=== PATIENT | female | born 1990 | race African-American/Black ===

== ENCOUNTER 2023-06-10 12:55 | Outpatient (CLI) | payer OTHER, SELFPAY | END 2023-06-10 12:56 | disposition home or self-care (01) | LOC: ANHSURGERY 12:59 | PROVIDERS: Visit Provider Obstetrics & Gynecology | DX: R10.2 Pelvic and perineal pain (principal); Z01.818 Encounter for other preprocedural examination | CPT/HCPCS: 36415; 86850; 86900; 86901 ==

== ENCOUNTER 2023-06-14 02:40 | Day surgery (SDC) | payer OTHER, SELFPAY ==
--- NOTE | 2023-06-05 15:29 | SUR.PREOP ---
Report to the Outpatient Waiting Room, entrance under the green pavilion located off [facility], at time 0715 on date 06/14/23. Planned Procedure Time: 0915. Time changes happen often and if your time is changed the preop area will call you the afternoon before. - You and your visitor will be asked to self-screen and do not enter if you have any COVID symptoms. - A mask is optional within the hospital at this time. Patients may have clear liquids (water, carbonated beverages, clear teas, apple juice) until 3 hours prior to surgery with a maximum of 20 ounces. - NO CLEAR LIQUIDS AFTER 0615 - No food from midnight until time of surgery - Infants may have breast milk until 4 hours before surgery, infant formula 6 hours prior to surgery. - Children will be allowed to drink immediately following surgery. If applicable, please bring a bottle or sippy cup to assist with drinking. Juice, water, soda, and popsicles are readily available. For infants on formula, please bring formula the day of surgery. Pacifiers are allowed. Please no make-up, nail tajik, hairspray, perfume, deodorant, or body powder the day of surgery. No jewelry (including any body piercings) or valuables the day of surgery, leave them at home. Please take a shower or bath the night before, or the morning of, surgery with an antibacterial soap. Wear comfortable, loose fitting clothing. Children are encouraged to wear pajamas. - Jewelry must be removed prior to entering the operating room. Rings and piercings that are not removed may be cut off. - The hospital will not accept responsibility for valuables. - Please leave all valuables, including medications, at home the day of surgery. If you are going home after surgery, a licensed spotter driver must drive you home. - NO public transportation without another adult if you receive anesthesia. - We recommend that an adult stay with you for 24 hours following discharge. - We also recommend that you do not drive, make important decision, drink alcoholic beverages, or take any drugs that were not prescribed by your health care provider for at least 24 hours after your discharge time. For Pediatric surgeries, we recommend two adults accompany the child home. Follow any additional instructions given to you from your surgeon. If you or anyone in your household have experienced Covid symptoms in the past week, please notify your surgeon or the nurse liaison at the phone number below for possible testing. Telephone instructions given to KYLAH COHEN and asked if any additional questions and then verbalized understanding. Patient advised to call surgeon office or pre surgery nurse liaison [phone] if any additional questions.
[2023-06-05 15:41] VITALS: BMI 41.7
--- NOTE | 2023-06-11 07:09 | P.HP_ITS ---
H&P: HPI History of Present Illness Date/Time: 06/11/23 07:09 Chief Complaint: Pelvic pain Narrative: 32-year-old multiparous female admitted for laparoscopy and chromopertubation. She has pain discomfort and dyspareunia. She has failed pain medication with negative STD findings. She also desires . So she will undergo chromopertubation simultaneously. Risks and benefits of this procedure reviewed including not exclusive of , aspiration pneumonia, bleeding, transfusion, perforation injury to bowel, bladder, ureters, or other internal organs with need for open laparotomy. She received the ACOG handout entitled laparoscopy. She had all questions answered. She asked to proceed. FORMERLY [facility] Social History Social History Smoking packs per day: 1 Smoking cigarettes per day: 20.0 Years smoked: 5 Smoking pack-years: 5.00 Tobacco type: e-cigarettes/vaping Additional smoking assessment comments: CURRENTLY VAPES DAILY FOR 2-3 YEARS Substance use type: marijuana Other substance usage details: MARIJUANA DAILY Living arrangements: with family Spiritual care concerns: No Meds Home Medications and Allergies Home Medications Medication Instructions Recorded Confirmed Type No Home Medications 06/05/23 06/05/23 History Allergies Allergy/AdvReac Type Severity Reaction Status Date / Time No Known Allergies Allergy Verified 06/05/23 15:35 Exam Const: General: cooperative, healthy appearing and comfortable Nutritional Appearance: overweight Orientation/consciousness: oriented to person, oriented to place and oriented to time HENMT: Head: normal to inspection Resp: Effort & Inspection: normal respiratory effort Cardio: Rate: regular rate Rhythm: regular rhythm Heart sounds: S1 normal heart sound present and S2 normal heart sound present GI: Inspection: normal to inspection : External Female Exam: normal external appearance Speculum Exam - Vagina: normal appearance of the vagina Speculum Exam - Cervix: normal appearance of the cervix Bimanual exam- vagina & uterus: enlarged and Uterine tenderness Bimanual Exam- Adnexa, other: tender bilaterally Assessment and Plan Assessment and plan (1) Pelvic pain: Code(s): R10.2 - Pelvic and perineal pain Status: Acute Plan Proceed with diagnostic laparoscopy and chromopertubation
--- NOTE | 2023-06-13 13:25 | WPDANESEPPF ---
Anes - Initial Pre Proc Eval Procedure: Operation Date: 06/14/23 08:30 Proposed Procedures p Diagnostic Laparoscopy - Alexis Hernadez MD Date/Time: 06/13/23 13:25 Surgeon: Alexis Hernadez MD Pre Op Diagnosis: Pelvic Pain Patient Data Age: 32 Gender: F Height: 1.68 m Weight: 117.2 kg Allergies Allergy/AdvReac Type Severity Reaction Status Date / Time No Known Allergies Allergy Verified 06/05/23 15:35 Home Medications Medication Instructions Recorded Confirmed Type hydrocodone 5 mg-acetaminophen 325 1 tablet PO Q4H PRN pain #20 tabs 06/14/23 Rx mg tablet Patient hx anesthesia problems: none Family hx anesthesia problems: none Results Review: All pre-operative results and documents have been reviewed as part of the pre-operative evaluation. FORMERLY [facility] Past Medical History Medical History (Updated 06/13/23 @ 13:30 by Savage Garza DO) Anxiety Surgical History Surgical History (Updated 06/13/23 @ 13:30 by Savage Garza DO) History of cholecystectomy Social History Social History Smoking packs per day: 1 Smoking cigarettes per day: 20.0 Years smoked: 5 Smoking pack-years: 5.00 Tobacco type: e-cigarettes/vaping Additional smoking assessment comments: CURRENTLY VAPES DAILY FOR 2-3 YEARS Substance use type: marijuana Other substance usage details: MARIJUANA DAILY Living arrangements: with family Spiritual care concerns: No Anes - Eval Final PreProcedure Day of Procedure Patient weight: morbidly obese Heart: regular rate and rhythm Lungs: clear to auscultation Airway: Mallampati scale class II Neurological: alert and oriented Last oral intake: >/= 8 hours ASA classification: III Emergent: no Anesthetic plan: proceed Anesthesia type and monitoring: general ETT and standard monitoring
[2023-06-14] VITALS (8 sets, daily range): BP systolic 106–131; BP diastolic 62–88; PULSE 59–91; RESP 12–16; TEMP 36.1–36.4; O2SAT 99–100
--- NOTE | 2023-06-14 06:32 | WPDHPUPDATE1 ---
History and Physical Update Update Date/Time: 06/14/23 06:32 History and Physical has been reviewed, including an updated exam of the patient. There are NO changes in the patient's condition. Risks, benefits, and alternatives have been discussed and questions answered. Patient agrees to proceed with procedure.
[2023-06-14] MEDS: LACTATED RINGERS 1,000 ML 30 ML IV CONT ×2 (07:00→09:32)
[2023-06-14] MEDS: MIDAZOLAM HCL (*CRX) 2 MG/2 ML VIAL IV PUSH (07:30)
[2023-06-14] MEDS: KETOROLAC 15 MG/ML VIAL (*BKC) IV PUSH (07:52)
[2023-06-14] MEDS: METHYLENE BLUE 0.5% INJ 10 ML AMPULE 20 ML IRRIGATION (09:02)
--- NOTE | 2023-06-14 09:02 | P.OP_ITS ---
Procedure Note - Detailed Date of Procedure 06/14/23 Pre-op Diagnosis Pelvic Pain Post-op Diagnosis Other (See with ovarian cysts) Procedure Performed laparoscopy with destruction of bilateral cysts were 2 Surgeon Alexis Hernadez MD Anesthesia General Indications this is a 32 year female pelvic pain Findings bilateral ovarian cysts were simple tubes uterus. Description of Procedure Patient was prepped draped in the sterile fashion placed dorsal. First trach anesthesia weighted speculum placed in posterior. Anterior lip cervix a single- tooth Kellogg's cannula inserted attached to the single-tooth. This would be used later for uterine manipulation. Bladder emptied of clear urine. The weighted speculum was removed gloves were changed. A supraumbilical incision made Veress needle passed in the abdomen. Abdomen filled with CO2 gas [id number]. The 5mm trocar advanced under direct visualization with optic scope assuring no injury. Patient placed in Trendelenburg suprapubic incision made the 5mm trocar advanced under direct visualization assuring no injury. The above findings were seen. The ovarian cysts were opened in linear fashion and drained of clear fluid. Chromopertubation was undertaken the plan fluid the fallopian tubes appeared to be pain. Irrigation was undertaken to clear the gas removed from the abdomen. The trocar sites removed the incisions closed with 4 Monocryl glue. Patient was awakened went to recovery in satisfactory condition. All sponge, needle, instrument counts were correct. There were no immediate complications Estimated Blood Loss 5 Drains No Packing No Pathology None sent Complications No immediate complications Condition Stable Disposition PACU
[2023-06-14] MEDS: oxyCODONE HCL (*CRX) 5 MG TAB IR PO (10:27)
== END 2023-06-14 10:59 | disposition home or self-care (01) ==
PROVIDERS: Visit Provider Obstetrics & Gynecology
PROC: (CPT 49320; principal; 2023-06-14 08:30)
DX: N83.202 Unspecified ovarian cyst, left side (principal); N83.201 Unspecified ovarian cyst, right side; F17.290 Nicotine dependence, other tobacco product, uncomplicated; E66.01 Morbid (severe) obesity due to excess calories; Z68.41 Body mass index [BMI] 40.0-44.9, adult
CPT/HCPCS: 58662; A9270; J0330; J1100; J1885; J2250; J2405; J2704; J3010; J7030; J7120; Q9968

== ENCOUNTER 2023-07-26 18:17 | Emergency (ER) | payer OTHER, SELFPAY ==
--- NOTE | ~2023-07-26 | CT_ITS ---
CT abdomen pelvis w con Ordering provider: Julissa Tucker PA-C History: . flank pain, UTI . Comparison: None. Technique: CT abdomen with IV and without oral contrast. Radiation reduction technique utilized. The LMP 1320.9 mGy Findings: VISUALIZED LOWER CHEST: Normal. UPPER ABDOMINAL ORGANS: Liver: Hypodensity near to the interlobar fissure most likely fat infiltration. Gallbladder: Status post cholecystectomy. Spleen: Normal. Stomach/duodenum: Normal. Pancreas: Normal. Adrenals: Normal. Kidneys: Normal. Urinary bladder: Normal. Uterus: Normal. Follicles in the right ovary. VISUALIZED BOWEL AND MESENTERY: No evidence of diverticulitis. Normal appendix. The bowel is otherwis e normal. No free air or free fluid. Mesenteric lymph nodes are noted with the largest measures 1.8 c m. RETROPERITONEUM: Normal aorta No retroperitoneal abnormalities and on the patient lymphadenopathy. MUSCULOSKELETAL: The superficial soft tissues are normal. Age appropriate degenerative changes of the spine. IMPRESSION: No acute abdominal process. Slightly enlarged mesenteric lymph nodes. Reviewed, dictated and finalized at location A.
[2023-07-26 18:18] VITALS: BP 147/92; PULSE 81; RESP 20; TEMP 36.5; O2SAT 100
[2023-07-26 18:39] LABS: Basophils Percent Auto 0.3 % (0.2-1.2); Eosinophils Absolute Auto 0.1 K/mm3 (0-0.3); Eosinophils Percent Auto 0.9 % (0-4.4); Hematocrit 35.5 % (37.0-47.0); Hemoglobin 11.9 g/dL (12.0-15.0); Immature Granulocyte Absolute 0.05 K/mm3 (0.00-0.031); Immature Granulocyte Percent A 0.4 % (0-0.5); Lymphocytes Percent Auto 35.6 % (18.3-44.2); Mean Corpuscular HGB Conc 33.5 g/dl (32-36); Mean Corpuscular Hemoglobin 30.4 pg (26-34); Mean Corpuscular Volume 90.6 fl (80-100); Mean Platelet Volume 10.1 fl (7.4-10.4); Monocytes Absolute Auto 0.8 K/mm3 (0.1-0.6); Monocytes Percent Auto 6.2 % (2.6-8.5); Neutrophils Absolute Auto 7.5 K/mm3 (1.3-6.7); Neutrophils Percent Auto 56.6 % (45.5-73.1); Platelet Count Result 313 k/mm3 (150-375); Red Blood Count 3.92 M/mm3 (4.2-5.4); Red Cell Distribution Width 13.6 % (11.5-14.5); White Blood Count 13.2 K/mm3 (4.5-10.0)
[2023-07-26 18:47] LABS: Appearance Urine Cloudy (Clear); Bacteria Urine 3+ /hpf; Bilirubin Urine Negative (Negative); Blood Urine Negative (Negative); Color Urine Yellow (Yellow); Glucose Urine UA Negative (Negative); Ketones Urine Negative (Negative); Leukocyte Esterase Ur 2+ LEU/UL (Negative); Nitrate Urine Negative (Negative); Non Pathogenic Casts 0-2; Protein Urine Negative (Negative); RBC Urine 0-2 /hpf (0-2); Specific Grav Ur 1.022 (1.001-1.035); Squamous Epithelial Cell Urine Moderate /hpf (Few); Urobilinogen Urine 0.2 mg/dL (<2.0); WBC Urine 21-50 /hpf (0-3); pH Urine 6.5 (5.0-9.0)
[2023-07-26 18:52] LABS: Add Urine Microscopic? YES
--- NOTE | 2023-07-26 18:59 | ED.BACK ---
HPI - Back Pain/Injury General Chief Complaint: Back Pain/Injury Stated Complaint: R sided back pain Time Seen by Provider: 07/26/23 18:27 Source: patient Mode of arrival: ambulatory Limitations: no limitations History of Present Illness HPI Narrative: This is a 32-year-old female that presents to the emergency department for right-sided low back pain. Ongoing over the last week. Reports associated nausea. Denies fevers, vomiting, dysuria, or hematuria. Related Data Allergies Allergy/AdvReac Type Severity Reaction Status Date / Time No Known Allergies Allergy Verified 07/26/23 18:21 Review of Systems Review of Systems: CONSTITUTIONAL: Denies fever GASTROINTESTINAL: Reports nausea. Denies vomiting, or diarrhea. GENITOURINARY: Denies dysuria or hematuria. All systems reviewed & are unremarkable except as noted in HPI and below PMFSH Past Medical History Medical History (Updated 07/26/23 @ 20:45 by Julissa Tucker PA-C) Anxiety Surgical History Surgical History (Updated 06/13/23 @ 13:30 by Savage Garza DO) History of cholecystectomy Social History Social History Smoking packs per day: 1 Smoking cigarettes per day: 20.0 Years smoked: 5 Smoking pack-years: 5.00 Tobacco type: e-cigarettes/vaping Additional smoking assessment comments: CURRENTLY VAPES DAILY FOR 2-3 YEARS Substance use type: marijuana Other substance usage details: MARIJUANA DAILY Living arrangements: with family Spiritual care concerns: No Exam Narrative: GENERAL: Well-appearing, well-nourished, and in no acute distress. HEAD: Normocephalic, atraumatic. EYES: EOMI. CHEST: Clear to auscultation. No respiratory distress. No wheezes rales or rhonchi HEART: Regular rate and rhythm. No murmur heard. Normal peripheral pulses. ABDOMEN: Soft, nontender, nondistended, normal active bowel sounds. No CVA tenderness EXTREMITIES: Normal range of motion. No edema. SKIN: Warm, dry, no rash. NEURO: No focal deficits. Alert and oriented x3. PSYCH: Normal mood and affect Course Course Emergency Course: patient updated on workup and agrees with plan of care Vital Signs Vital signs: Vital Signs Temperature 97.7 F 07/26/23 18:18 Pulse Rate 81 06/14/24 18:18 Respiratory Rate 20 07/26/23 18:18 Blood Pressure 147/92 H 07/26/23 18:18 Pulse Oximetry 100 07/26/23 18:18 Oxygen Delivery Room Air 07/26/23 18:18 Temperature 97.7 F 07/26/23 18:18 Pulse Rate 81 07/26/23 18:18 Respiratory Rate 20 07/26/23 18:18 Blood Pressure 147/92 H 07/26/23 18:18 Pulse Oximetry 100 07/26/23 18:18 Oxygen Delivery Room Air 07/26/23 18:18 MDM - Back Pain/Injury MDM Narrative Medical decision making narrative: Patient presents to the emergency department for right-sided low back pain ongoing over the last week. She is afebrile and nontoxic appearing. Her vitals are stable. CBC with mild leukocytosis to 13.2. Also shows normocytic anemia with hemoglobin of 11.9. Metabolic panel without concerning findings. UA with evidence of infection. This will be sent for culture. test is negative. Patient given 1st dose of antibiotics IV in the ED. CT abdomen and pelvis is without acute abdominal process. Shows slightly enlarged mesenteric lymph nodes. Patient updated on workup and agrees with plan of care. She is to follow up with primary provider. She was given warnings to return to the ER Differential Diagnosis Differential diagnosis: Likely strain of lumbar region, renal colic, pyelonephritis and other ( UTI, kidney stone) Lab Data Attestation: I reviewed the patient's lab results. 07/26/23 18:32 07/26/23 18:32 Labs: Lab Results 07/26/23 Range/Units 18:32 WBC 13.2 H (4.5-10.0) K/mm3 RBC 3.92 L (4.2-5.4) M/mm3 Hgb 11.9 L (12.0-15.0) g/dL Hct 35.5 L (37.0-47.0) % MCV 90.6
[2023-07-26 19:00] LABS: Alanine Aminotransferase 20 U/L (6-35); Albumin Level 4.6 g/dL (3.5-5.1); Alkaline Phosphatase 50 U/L (38-126); Anion Gap 12 mmol/L (4-12); Aspartate Amino Transferase 30 U/L (14-36); Bilirubin,Total 0.6 mg/dL (0.2-1.3); Blood Urea Nitrogen 13 mg/dL (7-17); Calcium 9.3 mg/dL (8.4-10.2); Carbon Dioxide 19 mmol/L (22-30); Chloride 107 mmol/L (98-107); Estimated CRCL calculation 103 ml/min; Estimated Glomerular Filt Rate > 60; Glucose 98 mg/dL (65-110); Potassium 3.9 mmol/L (3.4-5.0); Sodium 138 mmol/L (137-145)
[2023-07-26] MEDS: KETOROLAC 15 MG/ML VIAL (*BKC) IV PUSH (19:43)
[2023-07-26 20:44] VITALS: BP 136/83; PULSE 66; RESP 18; O2SAT 99
== END 2023-07-26 21:02 | disposition home or self-care (01) ==
PROVIDERS: Emergency Provider Physician Assistant
DX: N39.0 Urinary tract infection, site not specified (principal); M54.50 Low back pain, unspecified; D64.9 Anemia, unspecified; F17.290 Nicotine dependence, other tobacco product, uncomplicated; Z90.49 Acquired absence of other specified parts of digestive tract
CPT/HCPCS: 36415; 74177; 80053; 81001; 81025; 85025; 87077; 87086; 87088; 96365; 96375; 99284; J0696; J1885; Q9967

== ENCOUNTER 2024-03-05 11:18 | Outpatient (CLI) | payer OTHER, SELFPAY ==
[2024-03-05 13:02] LABS: Hematocrit 34.4 % (37.0-47.0); Hemoglobin 10.9 g/dL (12.0-15.0)
== END 2024-03-05 11:19 | disposition home or self-care (01) ==
PROVIDERS: Visit Provider Obstetrics & Gynecology
DX: R10.2 Pelvic and perineal pain (principal)
CPT/HCPCS: 36415; 85014; 85018; 86850; 86900; 86901

== ENCOUNTER 2024-03-12 01:49 | Day surgery (SDC) | payer OTHER, SELFPAY ==
--- NOTE | 2024-03-02 14:10 | SUR.PREOP ---
Report to the Outpatient Waiting Room, entrance under the green pavilion located off [facility], at time _0630_ on date _03/12/2024_. Planned Procedure Time: _0830_.? Time changes happen often and if your time is changed the preop area will call you the afternoon before. - You and your visitor will be asked to self-screen and do not enter if you have any COVID symptoms. Please call surgeon if you need to reschedule. - A mask is optional within the hospital at this time. Patients may have clear liquids (water, carbonated beverages, clear teas, apple juice) until 3 hours (0530) prior to surgery with a maximum of 20 ounces. - No food from midnight until time of surgery and no smoking. This includes no chewing gum, candy or mints. Take only the following medications with a SIP of water on the morning of surgery: _NA_ DO NOT STOP ANY OF YOUR OTHER PRESCRIPTION MEDICATIONS PRIOR TO SURGERY EXCEPT THE FOLLOWING Medications to discontinue per physician _NA_ Date to take last dose_NA_ Please no make-up, nail comoran, hairspray, perfume, deodorant, or body powder the day of surgery.? No jewelry (including any body piercings) or valuables the day of surgery, leave them at home.? Please take a shower or bath the night before, or the morning of, surgery with an antibacterial soap.? Wear comfortable, loose fitting clothing.? Children are encouraged to wear pajamas. - Jewelry must be removed prior to entering the operating room.? Rings and piercings that are not removed may be cut off. - The hospital will not accept responsibility for valuables.? - Please leave all valuables, including medications, at home the day of surgery. If you are going home after surgery, a licensed regional company flatbed truck driver must drive you home.? - NO public transportation without another adult if you receive anesthesia. - We recommend that an adult stay with you for 24 hours following discharge. - We also recommend that you do not drive, make important decision, drink alcoholic beverages, or take any drugs that were not prescribed by your health care provider for at least 24 hours after your discharge time. Follow any additional instructions given to you from your surgeon. Telephone instructions given to _Ana M_and asked if any additional questions and then verbalized understanding. Patient advised to call surgeon office or pre surgery nurse liaison [phone] if any additional questions.
[2024-03-02 14:19] VITALS: BMI 43.5
--- NOTE | 2024-03-10 07:07 | PM.IMHP ---
H&P: HPI History of Present Illness Date/Time: 03/10/24 07:07 Chief Complaint: Pelvic pain/excessive bleeding Narrative: 33-year-old 2 para 2 admitted for laparoscopy hysteroscopy dilatation curettage she is also wants to undergo a chromopertubation she would like to be . Risks and benefits of these procedures reviewed including not exclusive of , aspiration pneumonia, bleeding, transfusion, perforation injury to bowel, bladder, ureters, or other internal organs with need for open laparotomy. She received the ACOG handout entitled laparoscopy as well as hysteroscopy and dilatation curettage respectively. She had all questions answered and asked to proceed Review of Systems Review of Systems: CONSTITUTIONAL: Denies fever GASTROINTESTINAL: Reports nausea. Denies vomiting, or diarrhea. GENITOURINARY: Denies dysuria or hematuria. All systems reviewed & are unremarkable except as noted in HPI and below PMFSH Past Medical History Medical History Anxiety Surgical History Surgical History History of cholecystectomy Social History Social History Smoking packs per day: 1 Smoking cigarettes per day: 20.0 Years smoked: 5 Smoking pack-years: 5.00 Smoking status: Current every day smoker Tobacco type: e-cigarettes/vaping Second hand tobacco smoke exposure: No Additional smoking assessment comments: CURRENTLY VAPES DAILY FOR 2-3 YEARS Alcohol intake: never Substance use: current Substance use type: marijuana Other substance usage details: daily Living arrangements: with family Additional living arrangements comments: with fiance and children Spiritual care concerns: No Meds Home Medications and Allergies Home Medications ?Medication ?Instructions ?Recorded ?Confirmed ?Type No Home Medications 03/02/24 03/02/24 History Allergies Allergy/AdvReac Type Severity Reaction Status Date / Time No Known Allergies Allergy Verified 03/02/24 14:19 Exam Const: General: cooperative, healthy appearing, comfortable and obese Orientation/consciousness: oriented to person, oriented to place and oriented to time HENMT: Head: normal to inspection Resp: Effort & Inspection: normal respiratory effort Cardio: Rate: regular rate Rhythm: regular rhythm Heart sounds: S1 normal heart sound present and S2 normal heart sound present GI: Inspection: normal to inspection and obesity : External Female Exam: normal external appearance Speculum Exam - Vagina: normal appearance of the vagina Speculum Exam - Cervix: normal appearance of the cervix Bimanual exam- vagina & uterus: soft Bimanual Exam- Adnexa, other: tender bilaterally Assessment and Plan Assessment and plan (1) Pelvic pain: Code(s): R10.2 - Pelvic and perineal pain Status: Acute (2) Excessive bleeding: Code(s): R58 - Hemorrhage, not elsewhere classified Status: Acute Plan Proceed with laparoscopy/hysteroscopy/dilatation curettage. Will also perform chromopertubation
[2024-03-12] VITALS (9 sets, daily range): BP systolic 97–134; BP diastolic 64–85; PULSE 55–93; RESP 12–18; TEMP 36.3–36.6; O2SAT 97–100; BMI 43.2
--- OUTSIDE RECORDS SUMMARY | 2024-03-12 01:51 | XMS_ITS | Clinical Summary ---
Author Organization [facility] Address [address] [place] [address] Phone Care Team Providers Care Desolderer Name Role Phone Provider, None Primary Care Provider Unavailabl e Social History Tobacco Use Types Packs/Day Years Used Date Smoking Tobacco: Never Assessed Comments Unknown Sex and Gender Information Value Date Recorded Sex Assigned at Not on file Legal Sex Female 1:23 AM CDT Gender Identity Not on file Sexual Orientation Not on file Plan of Treatment Not on file Insurance MEDICAID [place] Care Teams Desolderer Relationship Specialty Start Date End Date Provider, None [place] PCP - General 10/18/16
--- OUTSIDE RECORDS SUMMARY | 2024-03-12 01:51 | XMS_ITS | Clinical Summary ---
Author Organization [facility] Address [address] [facility] [place] [address] Care Team Providers Care Waiter/Waitress Formal Name Role Phone Daniel Leal MD Primary Care Provider Source Comments [facility] [employer],non-owned Affiliates and Associated Physician Practices is amultiple site organization consisting of ambulatory clinics and hospital sitesin [place], [place], [place] and [place]. This disclosure is being madepursuant to the Care Everywhere program and may not contain all information available regarding this patient. Last updated 17.[facility] [employer] Immunizations Name Administration Dates Next Due TDAP (7yrs+) 10/06/2015 Social History Tobacco Use Types Packs/Day Years Used Date Smoking Tobacco: Never Assessed Sex and Gender Information Value Date Recorded Sex Assigned at Not on file Gender Identity Not on file Sexual Orientation Not on file Plan of Treatment Health Maintenance Due Date Last Done Comments PAP SMEAR 1990 HIV SCREENING 2005 HEPATITIS C SCREENING 07/25/2008 HEPATITIS B VACCINE (1 of 3 - 19+ 3-dose series) 2009 COVID-19 VACCINE ( - 2023-2 5 season) 2023 INFLUENZA VACCINE (#1) 2023 DEPRESSION SCREENING 02/12/2024 DTAP/TDAP/TD VACCINES (2 - T d or Tdap) 10/05/2025 10/06/2015 ZOSTER VACCINE (1 of 2) 2040 HIB VACCINE Aged Out No longer eligi ble based on patient's age to complete this topic HPV VACCINE Aged Out No longer eligi ble based on patient's age to complete this topic MENINGOCOCCAL (Group B) VACCINE Aged Out No longer eligible based on patient's age to complete this topic MENINGOCOCCAL VACCINE Aged Out No marian silvia eligible based on patient's age to complete this topic PNEUMOCOCCAL VACCINE Aged Out No long er eligible based on patient's age to complete this topic Care Teams Waiter/Waitress Formal Relationship Specialty Start Date End Date Daniel Leal MD [address] [facility] [address] [place] [id number] PCP - General Internal Medicine 10/06/15
--- OUTSIDE RECORDS SUMMARY | 2024-03-12 01:51 | XMS_ITS | Patient Health Summary ---
Author Organization [facility] Address [address] [place] [address] Care Team Providers Care Clinical Ob Name Role Phone Daniel Leal MD Primary Care Provider [phone] Note from [facility],non-owned Affiliates and Associated Physician Practices is amultiple site organization consisting of ambulatory clinics and hospital sitesin [place], [place], [place] and [place]. This disclosure is being madepursuant to the Care Everywhere program and may not contain all information available regarding this patient. Last updated 17.[facility] Immunizations * TDAP (7yrs+)(Given 10/06/2015) Social History Tobacco Use Types Packs/Day Years Used Date Smoking Tobacco: Never Assessed Sex and Gender Information Value Date Recorded Sex Assigned at Not on file Gender Identity Not on file Sexual Orientation Not on file Procedures * GROSS + MICRO EXAM(Performed 10/27/2004) Results * GROSS + MICRO EXAM (10/27/2004 1:00 PM CDT) Result CASE NUMBER [id number] [facility] PATH REPORT Comment: ORDERING PHYSICIAN ??LIZY MENDEZ SPECIMEN TYPE ?Gallbladder CLINICAL HISTORY ? The patient is a 14-year-old girl with biliary colic who underwent laparoscopic cholecystectomy. GROSS DESCRIPTION ? The specimen, labeled with the patient's name and gallbladder, is received in a plastic bag for gross and microscopic examination and consists of a 10.2 x 2.0 x 1.6 cm hydropic pink-cervantes gallbladder. ??The cystic duct is stapled shut. ??The gallbladder is filled with yellow choleliths and thick black-brown bile. ??The stones vary in size from 1 mm in greatest dimension up to 5 mm cm in greatest dimension. ??The serosal surface is smooth. ??The mucosal surface is yellow-cervantes and velvety. ??The wall thickness measures 2 mm. ??A 3.0 cm cavity is identified at the fundus of the gallbladder. ??A 1.0 cm hemorrhagic nodule is identified at the periphery of the cavity. ??A second 0.5 cm nodule is identified 0.3 cm from the cavity. ??Orthopedically Impaired Teacher sections from the cystic duct are submitted in cassette A1 . ??The remainder of the specimen is fixed in formalin overnight prior to further sectioning. Orthopedically Impaired Teacher sections from the nodules are submitted in cassette A2 . Orthopedically Impaired Teacher sections from the cavity are submitted in cassette A3 . Orthopedically Impaired Teacher sections from the remainder of the specimen are submitted in cassette A4 . ??(CC/pg) MICROSCOPIC DESCRIPTION ? 4 H/E, 1 trichrome, 1 iron and 1 bilirubin stain Sections show focal thickening gallbladder wall with a lymphocytic infiltrate in the submucosa. ??Sections through the grossly described nodules show thick-wall with a mixed inflammatory infiltrate, granulation tissue and perivascular mixed inflammation, particularly eosinophils and gold-brown pigmented macrophages containing iron. ([place]/pg/lw) DIAGNOSIS ? DIAGNOSIS ??GALLBLADDER, EXCISION ? - CHRONIC CHOLECYSTITIS. ? - CHOLELITHIASIS. This case has been personally reviewed and interpreted by the attending (teaching) pathologist. Improvement Manager ? MILTON LANGLEY RESIDENT IN PATHOLOG Ariel Castellon. PATHOLOGIST ?Kiran Burnette M.D. ELECTRONICALLY MONO Kiran Burnette MISCELLANEOUS SAMPLES / Unknown 10/27/2004 1:00 PM CDT 10/27/2004 2:16 PM CDT Historical Provider LAB - PATHOLOGY/C YTOLOGY ORDERABLES [facility] PATH REPORT Care Teams Clinical Ob Relationship Specialty Start Date End Date Daniel Leal MD [address] [id number] PCP - General Internal Medicine 10/06/15
--- OUTSIDE RECORDS SUMMARY | 2024-03-12 01:51 | XMS_ITS | Referral Summary ---
Author Organization [facility] Address [address] [place] [address] Care Team Providers Care Laundry Operator Name Role Phone Daniel Leal MD Primary Care Provider Source Comments [facility],non-owned Affiliates and Associated Physician Practices is amultiple site organization consisting of ambulatory clinics and hospital sitesin [place], [place], [place] and [place]. This disclosure is being madepursuant to the Care Everywhere program and may not contain all information available regarding this patient. Last updated 17.[facility] Immunizations Name Administration Dates Next Due TDAP (7yrs+) 10/06/2015 Social History Tobacco Use Types Packs/Day Years Used Date Smoking Tobacco: Never Assessed Sex and Gender Information Value Date Recorded Sex Assigned at Not on file Gender Identity Not on file Sexual Orientation Not on file Plan of Treatment Not on file Care Teams Laundry Operator Relationship Specialty Start Date End Date Daniel Leal MD [address] [facility] [address] [place] [id number] PCP - General Internal Medicine 10/06/15
[2024-03-12] MEDS: LACTATED RINGERS 1,000 ML 30 ML IV CONT (07:00)
--- NOTE | 2024-03-12 07:01 | WPDHPUPDATE1 ---
History and Physical Update Update Date/Time: 03/12/24 07:01 History and Physical has been reviewed, including an updated exam of the patient. There are NO changes in the patient's condition. Risks, benefits, and alternatives have been discussed and questions answered. Patient agrees to proceed with procedure.
[2024-03-12] MEDS: ACETAMINOPHEN 500 MG TABLET 1000 MG PO (07:10)
[2024-03-12] MEDS: KETOROLAC 15 MG/ML VIAL (*BKC) IV PUSH (07:10)
--- NOTE | 2024-03-12 07:23 | P.PNAN_ITS ---
Anes - Initial Pre Proc Eval Procedure: Operation Date: 03/12/24 08:15 Proposed Procedures p Diagnostic Laparoscopy, - Alexis Hernadez MD s Hysteroscopy Dilation and Curettage - Alexis Hernadez MD Date/Time: 03/12/24 07:23 Surgeon: Alexis Hernadez MD Pre Op Diagnosis: irregular bleeding, pelvic pain Patient Data Age: 33 Gender: F Height: 1.68 m Weight: 122.47 kg Allergies Allergy/AdvReac Type Severity Reaction Status Date / Time No Known Allergies Allergy Verified 03/02/24 14:19 Home Medications ?Medication ?Instructions ?Recorded ?Confirmed ?Type hydrocodone 5 mg-acetaminophen 325 1 tablet PO Q4H PRN pain #20 tabs 03/12/24 Rx mg tablet Patient hx anesthesia problems: none Family hx anesthesia problems: none Results Review: All pre-operative results and documents have been reviewed as part of the pre- operative evaluation. [facility] Past Medical History Medical History Anxiety Surgical History Surgical History History of cholecystectomy Social History Social History Smoking packs per day: 1 Smoking cigarettes per day: 20.0 Years smoked: 5 Smoking pack-years: 5.00 Smoking status: Current every day smoker Tobacco type: e-cigarettes/vaping Second hand tobacco smoke exposure: No Additional smoking assessment comments: CURRENTLY VAPES DAILY FOR 2-3 YEARS Alcohol intake: never Substance use: current Substance use type: marijuana Other substance usage details: daily Living arrangements: with family Additional living arrangements comments: with fiance and children Spiritual care concerns: No Anes - Eval Final PreProcedure Day of Procedure 03/12/24 07:23 Patient weight: morbidly obese Heart: regular rate and rhythm Lungs: clear to auscultation Airway: Mallampati scale class II Neurological: alert and oriented Last oral intake: >/= 8 hours ASA classification: III Emergent: no Anesthetic plan: proceed Anesthesia type and monitoring: general ETT and standard monitoring Results Review: All pre-operative results and documents have been reviewed as part of the pre- operative evaluation. Informed Consent: The patient's anesthetic plan and its attendant risks and benefits were discussed with the patient/family/POA. Questions were solicited and answers provided to the satisfaction of the patient/family/POA.
[2024-03-12 07:46] LABS: BEDSIDEPREGUCG Negative (Negative)
[2024-03-12] MEDS: METHYLENE BLUE 0.5% INJ 10 ML AMPULE IRRIGATION (08:54)
--- NOTE | 2024-03-12 08:59 | W.PM.PROC2 ---
Procedure Note - Detailed Date of Procedure 03/12/24 Pre-op Diagnosis irregular bleeding, pelvic pain Post-op Diagnosis Other Procedure Performed Laparoscopy with destruction of left ovarian cyst/hysteroscopy/dilatation curettage/chromopertubation Surgeon Alexis Hernadez MD Anesthesia General Indications This is a 33-year-old female with infertility pelvic Findings Left ovarian cyst. The tubes were open but it was difficult to push the fluid through. On hysteroscopy normal finding Description of Procedure Patient was prepped draped in the normal sterile fashion placed in the dorsal lithotomy position. Excellent general endotracheal anesthesia a weighted speculum placed in posterior fornix of vagina. Anterior lip of cervix grasped with single-tooth tenaculum. The [employer] cannula was inserted attached with to the single-tooth the gloves were changed after the weighted speculum was removed. A supraumbilical incision made the Veress needle passed in the abdomen. Abdomen filled with CO2 gas [id number]. The 5mm trocar advanced under direct visualization assuring no injury. A suprapubic incision made the 5mm trocar advanced under direct visualization assuring. It was a left ovarian cyst which was opened in linear fashion drained of clear fluid no other abnormalities were seen in the appendix could be seen was. The methylene blue was pushed through the uterine cervix and was seen flowing through each tube after fair amount of pushing. Irrigation was undertaken to clear. No other abnormalities were seen and the gas removed from the abdomen. The trocars removed the incisions closed with 4-0 Monocryl and glue. Attention was turned to the hysteroscopy portion. The uterus sounded 8cm. Serial dilatation fragmented dilators performed followed by passage of the 5mm visualizing hysteroscope using normal saline as visualizing medium. No abnormalities were seen in the uterus scraped over the entire 360? until a good grating sound was heard. Instruments with withdrawn the patient went recovery in satisfactory condition. All sponge, needle, instrument counts were correct. There were no complications blood loss was 5cc Estimated Blood Loss 5 Drains No Packing No Pathology Yes Complications No immediate complications Condition Stable Disposition PACU
[2024-03-12] MEDS: fentaNYL CITRATE INJ (*CRX) 100 MCG/2 ML VIAL 25 MCG IV PUSH ×4 (09:26→09:36)
[2024-03-12] MEDS: oxyCODONE HCL (*CRX) 5 MG TAB IR PO (10:11)
== END 2024-03-12 11:18 | disposition home or self-care (01) ==
PROVIDERS: Visit Provider Obstetrics & Gynecology
PROC: (CPT 49320; principal; 2024-03-12 08:15)
PROC: 0U5B8ZZ Destruction of Endometrium, Via Natural or Artificial Opening Endoscopic (ICD-10-PCS; CPT 58563; 2024-03-12 08:15)
DX: N71.1 Chronic inflammatory disease of uterus (principal); N83.292 Other ovarian cyst, left side; F41.9 Anxiety disorder, unspecified; F17.290 Nicotine dependence, other tobacco product, uncomplicated; F12.90 Cannabis use, unspecified, uncomplicated; E66.01 Morbid (severe) obesity due to excess calories; Z68.41 Body mass index [BMI] 40.0-44.9, adult; Z79.891 Long term (current) use of opiate analgesic; Z98.890 Other specified postprocedural states; Z90.49 Acquired absence of other specified parts of digestive tract
CPT/HCPCS: 58558; 58662; 88305; A9270; J0330; J1100; J1885; J2003; J2250; J2405; J2704; J3010; J7030; J7120; Q9968

== ENCOUNTER 2024-06-25 11:41 | Emergency (ER) | payer OTHER, SELFPAY ==
--- NOTE | ~2024-06-25 | US_ITS ---
EXAMINATION: US pelvic complete w TV DATE: 06/25/2024 13:31 INDICATION: Pelvic pain and cramping TECHNIQUE: Multiple transabdominal and endovaginal sonographic images of the pelvis were obtained. COMPARISON: None. FINDINGS: The uterus measures 9.0 x 4.4 x 4.6 cm. The endometrial complex measures 6-7 mm in thickness. There are a few anechoic nabothian cysts at the cervix measuring up to 6 mm in maximal diameter. The right ovary measures 2.8 x 2.8 x 1.9 cm. The left ovary measures 2.7 x 1.7 x 2.3 cm. There are few anechoic follicles at both ovaries measuring up to 5 mm. Basilar flow identified in both ovaries on color Dop pler. There is a 4 mm hyperechoic region within the left ovary potentially scarring or calcification related to reported left ovarian cyst removal from less than 4 months prior. There is no free fluid i n the pelvis. IMPRESSION: 1. Indeterminate 4 mm echogenic region within the left ovary which could represent sequela of recent left ovarian cyst removal. Otherwise unremarkable pelvic ultrasound with small bilateral ovarian foll icles and a few small nabothian cysts at the cervix. Reviewed, dictated and finalized at location A. IMPRESSION: 1. Indeterminate 4 mm echogenic region within the left ovary which could repres ent sequela of recent left ovarian cyst removal. Otherwise unremarkable pelvic ultrasound with small bilateral ovarian follicles and a few small nabothian cys ts at the cervix.
--- OUTSIDE RECORDS SUMMARY | 2024-06-25 11:43 | XMS_ITS | Clinical Summary ---
Author Organization [facility] Address [address] [place] [address] Phone Care Team Providers Care Braiding Operator Name Role Phone Provider, None Primary Care [...] on file Insurance MEDICAID [place] Care Teams Braiding Operator Relationship Specialty Start Date End Date Provider, None [place] PCP - General 10/18/16
--- OUTSIDE RECORDS SUMMARY | 2024-06-25 11:43 | XMS_ITS | Clinical Summary ---
Author Organization [facility] Address [address] [place] [address] Care Team Providers Care Spring Clipper Name Role Phone Daniel Leal MD Primary Care Provider Source Comments [facility],non-owned Affiliates and Associated Physician Practices is amultiple site organization consisting of ambulatory clinics and hospital sitesin [place], [place], [place] and [place]. This disclosure is being madepursuant to the Care Everywhere program and may not contain all information available regarding this patient. Last updated 17.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 Gender Identity Not on file Sexual Orientation Not on file Plan of Treatment Health Maintenance Due Date Last Done Comments HIV SCREENING 2005 HEPATITIS C SCREENING 07/25/2008 HEPATITIS B VACCINE (1 of 3 - 19+ 3-dose series) 2009 COVID-19 VACCINE (2023-2 5 season) 2023 DEPRESSION SCREENING 02/12/2024 INFLUENZA VACCINE (Season Ended) 2024 DTAP/TDAP/TD VACCINES (2 - T d or Tdap) 10/05/2025 10/06/2015 ZOSTER VACCINE (1 of 2) 2040 HIB VACCINE Aged Out No longer eligi ble based on patient's age to complete this topic HPV VACCINE Aged Out No longer eligi ble based on patient's age to complete this topic MENINGOCOCCAL (Group B) VACC INE SHARED DECISION-MAKING Aged Out No longer eligibl e based on patient's age to complete this topic MENINGOCOCCAL GROUPS A/C/Y/W VACCINE Aged Out No longer eligible b ased on patient's age to complete this topic PNEUMOCOCCAL VACCINE Aged Out No long er eligible based on patient's age to complete this topic Insurance Care Teams Spring Clipper Relationship Specialty Start Date End Date Daniel Leal MD [address] [facility] [address] [place] [phone] PCP - General Internal Medicine 10/06/15
--- OUTSIDE RECORDS SUMMARY | 2024-06-25 11:43 | XMS_ITS | Data Portability ---
Author Organization [facility] Address [address] [place] [address] Assessment No assessment recorded. Plan of Treatment Reminders Order Date Submit Date Provider Last Modified By Organization Details Last Modified Time Details Appointments ANY 15 2024 08:15A M Kathy Vaz MD Not available Not available Not available NEW PATIENT 45 2024 09:00A M Vasquez Khan LCSW Not available Not available Not available Lab CBC 2024 025 [facility], [address] [place] [address], [address], [place], [address], 06/11/2024 09:21:58 CMP, serum or plasma 2024 025 [facility], [address] [place] [address], [facility] [address], [place], [address], 06/11/2024 09:21:55 TSH, ultra-se nsitive, serum 2024 025 [facility], [address] [place] [address], [address], [place], [address], 06/11/2024 09:21:56 Referral None recorded . Procedures None recorded . Surgeries None recorded . Imaging None recorded . Medication Orders Topamax 25 mg tablet 2024 025 [facility]: [id number], [address] , [place], [place], [id number], 06/10/2024 18:27:40 Patient TargetsNo targets recorded. Patient InstructionsNo instructions recorded. Reason for Referral None Reported. Results Created Date Observation Date Name Description Value Unit Range Abnormal Flag Note LastModifiedBy Organization Detail LastModifiedTime 06/11/19 25 06/11/2024 COMP. METAB OLIC PANEL (14) glucose 90 mg/dL 70-99 Not Available [facility] ([facility]) [address] [place], [address], 06/11/2024 09:21:55 06/11/19 25 06/11/2024 COMP. METAB OLIC PANEL (14) BUN 8 mg/dL 6-20 Not Available [facility] ([facility]) [address] [place], [address], 06/11/2024 09:21:55 06/11/19 25 06/11/2024 COMP. METAB OLIC PANEL (14) creatinine 0.74 mg/dL 0.57-1 .00 Not Available [facility] ([facility]) [address] [place], [address], 06/11/2024 09:21:55 06/11/19 25 06/11/2024 COMP. METAB OLIC PANEL (14) eGFR 109 mL/mi n/1.7 3 >59 Not Available [facility] ([facility]) [address] [place], [address], 06/11/2024 09:21:55 06/11/19 25 06/11/2024 COMP. METAB OLIC PANEL (14) BUN/creatini ne ratio 11 9-23 Not Available [facility] ([facility]) [address] [place], [address], 06/11/2024 09:21:55 06/11/19 25 06/11/2024 COMP. METAB OLIC PANEL (14) sodium 139 mmol/ L 134-14 4 Not Available [facility] ([facility]) [address] [place], [address], 06/11/2024 09:21:55 06/11/19 25 06/11/2024 COMP. METAB OLIC PANEL (14) potassium 3.9 mmol/ L 3.5-5. 2 Not Available [facility] ([facility]) [address] [place], [address], 06/11/2024 09:21:55 06/11/19 25 06/11/2024 COMP. METAB OLIC PANEL (14) chloride 103 mmol/ L 96-106 Not Available [facility] ([facility]) [address] [place], [address], 06/11/2024 09:21:55 06/11/19 25 06/11/2024 COMP. METAB OLIC PANEL (14) carbon dioxide, total 20 mmol/ L 20-29 Not Available [facility] ([facility]) [address] [facility], [place], [address], 06/11/2024 09:21:55 06/11/19 25 06/11/2024 COMP. METAB OLIC PANEL (14) calcium 9.1 mg/dL 8.7-10 .2 Not Available [facility] ([facility]) [address] [facility] [place], [address], 06/11/2024 09:21:55 06/11/19 25 06/11/2024 COMP. METAB OLIC PANEL (14) protein, total 7.2 g/dL 6.0-8. 5 Not Available [facility] ([facility]) [address] [place], [address], 06/11/2024 09:21:55 06/11/19 25 06/11/2024 COMP. METAB OLIC PANEL (14) albumin 4.3 g/dL 3.9-4. 9 Not Available [facility] ([facility]) [address] [facility] [place], [address], 06/11/2024 09:21:55 06/11/19 25 06/11/2024 COMP. METAB OLIC PANEL (14) globulin, total 2.9 g/dL 1.5-4. 5 Not Available [facility] ([facility]) [address] [place], [address], 06/11/2024 09:21:55 06/11/19 25 06/11/2024 COMP. METAB OLIC PANEL (14) bilirubin, total 0.5 mg/dL 0.0-1. 2 Not Available [facility] ([facility]) [address] [place], [address], 06/11/2024 09:21:55 06/11/19 25 06/11/2024 COMP. METAB OLIC PANEL (14) alkaline phosphatase 54 IU/L 44-121 Not Available [facility] ([facility]) [address] [place], [address], 06/11/2024 09:21:55 06/11/19 25 06/11/2024 COMP. METAB OLIC PANEL (14) AST (SGOT) 29 IU/L 0-40 Not Available [facility] ([facility]) [address] [place], [address], 06/11/2024 09:21:55 06/11/19 25 06/11/2024 COMP. METAB OLIC PANEL (14) ALT (SGPT) 28 IU/L 0-32 Not Available [facility] ([facility]) [address] [place], [address], 06/11/2024 09:21:55 06/11/1906/11/2024 TSH RFX ON ABNOR MAL TO FREE T4 TSH 2.010 uIU/m L 0.450- 4.500 Not Available [facility] ([facility]) [address] [place], [address], 06/11/2024 09:21:56 06/11/19 06/11/2024 CBC, PLATE LET, NO DIFFE RENTI AL WBC 9.2 x10e3 /uL 3.4-10 .8 Not Available [facility] ([facility]) [address] [place], [address], 06/11/2024 09:21:58 06/11/1906/11/2024 CBC, PLATE LET, NO DIFFE RENTI AL RBC 3.69 x10e6 /uL 3.77-5 .28 below low normal Not Available [facility] ([facility]) [address] [facility], [place], [address], 06/11/2024 09:21:58 06/11/1906/11/2024 CBC, PLATE LET, NO DIFFE RENTI AL hemoglobin 10.8 g/dL 11.1-1 5.9 below low normal Not Available [facility] ([facility]) [address] [place], [address], 06/11/2024 09:21:58 06/11/1906/11/2024 CBC, PLATE LET, NO DIFFE RENTI AL hematocrit 33.2 % 34.0-4 6.6 below low normal Not Available [facility] ([facility]) [address] [place], [address], 06/11/2024 09:21:58 06/11/1906/11/2024 CBC, PLATE LET, NO DIFFE RENTI AL MCV 90 fL 79-97 Not Available [facility] ([facility]) [address] [place], [address], 06/11/2024 09:21:58 06/11/1906/11/2024 CBC, PLATE LET, NO DIFFE RENTI AL MCH 29.3 pg 26.6-3 3.0 Not Available [facility] ([facility]) [address] [place], [address], 06/11/2024 09:21:58 06/11/1906/11/2024 CBC, PLATE LET, NO DIFFE RENTI AL MCHC 32.5 g/dL 31.5-3 5.7 Not Available [facility] ([facility]) [address] [facility], [place], [address], 06/11/2024 09:21:58 06/11/1906/11/2024 CBC, PLATE LET, NO DIFFE RENTI AL RDW 14.5 % 11.7-1 5.4 Not Available [facility] ([facility]) [address] [facility], [place], [address], 06/11/2024 09:21:58 06/11/1906/11/2024 CBC, PLATE LET, NO DIFFE RENTI AL platelets 282 x10e3 /uL 150-45 0 Not Available [facility] ([facility]) [address] [facility], [place], [address], 06/11/2024 09:21:58 Result Notes None recorded. Procedures Surgical History Date Name Laterality Status Provider Name and Address Organization Details Recorded Time laparoscopic excision of small intestine completed Susi Barragan [place] - [facility] 06/10/2024 10:55:52 excision of cyst completed Susi Braragan [place] - [facility] 06/10/2024 10:56:02 Imaging Results None recorded. Procedure Notes None recorded. Medical Equipment None Reported. Allergies No known drug allergies Medications Name Sig Start Date Stop Date Status Note LastModified by Organization Details LastModified Time hydrocodone 5 mg-acetamin ophen 325 mg tablet TAKE 1 TABLET BY MOUTH EVERY 4 HOURS NEEDED FOR PAIN 06/10 completed Not Available Not Available Not Available topiramate 25 mg tablet TAKE 1 TABLET BY MOUTH EVERY NIGHT AT BEDTIME. CAN INCREASE TO 2 TABLETS BY MOUTH EVERY NIGHT AT BEDTIME AFTER 2 WEEK IF NEEDED active Not Available Not Available No t Available cefdinir 300 mg capsule TAKE 1 CAPSULE BY MOUTH EVERY 12 HOURS X 1 WEEK 06/10 completed Not Available Not Available Not Available Vitals Date Recorded Body weight Body temperature Oxygen saturation Oxygen saturation in Arterial blood by Pulse oximetry Heart rate Body mass index (BMI) Body height Systolic blood pressure Diastolic blood pressure Provider Name and Address Organization Details Last Updated DateTime 5 938544. 8 g 79.9 [degF] 97 % 97 % 78 /min 42.2 kg/m2 167.64 cm 122 mm[Hg] 82 mm[Hg] Susi Barragan [place] - [facility] 11:01:09 Social History Question Answer Notes LastModified by Organizat [email or web address] Details LastModified Time Tobacco Smoking Status Former Smoker long time ago Susi Barragan [facility], [facility] 06/10/2024 10:55:03 What Was The Date Of Your Most Recent Tobacco Screening? 06/10/2024 [email or web address] Information not available 06/10/2024 Has Tobacco Cessation Counseling Been Provided? Yes [email or web address] Information not available 06/10/2024 On What Date Was Tobacco Cessation Counseling Provided? 06/10/2024 [email or web address] Information not available 06/10/2024 Sex: Unknown Functional Status Question Answer Note LastModified by OrganizDada Details LastModified Time Do you or have you ever used any other forms of tobacco or nicotine? Yes Information not available 06/10/2024 Do you or have you ever used e-cigarettes or vape? Current user of electronic cigarettes Information not available 06/10/2024 Mental Status None recorded. Family History Nothing Reported. Medical History No medical history recorded. Gynecological History Statement/Question Response Flow Moderate Date of LMP 05/26/2024 On BCP's at Conception? N Menses Monthly Y Duration of Flow (days) 7 Current Control Method None LMP Approximate Obstetrics History GPAL:G 3 P 2 0 1 2 Type Value Full Term 2 Spontaneous 1 Living 2 Total 3 Past Encounters Encounter ID Performer Location Encounter Start Date Encounter Closed Date Diagnosis/Indication Diagnosis SNOMED-CT Code Diagnosis ICD10 Code Diagnosis Note [id number] MD Jean Velazquez (Adult Med) [address] [place] [address] 06/10/2024 10:42:13 06/12/2024 13:27:49 History of hypothyroidism 273556975 Z86.39 Will check TSH. Anhedonia 06040598 R45.8 4 Will check CBC and CMP. Follow up in one month. Will make counseling appointpatsy muniz Discussed that her symptoms of lack of motivation , not wanting to get out of bed, lack of appetite, and problems sleeping could be due to depression . Will check blood work to make sure there is not a metabolic issue that is contributi ng to how she is feeling. If that is normal, will discuss medication to help with how she is feeling. She will follow up in one month. Not gettin g enough sleep 955709499 Z72.820 Will avoid marijuana. Will see if Topamax helps with sleep. Headache disorder 367760 009 R51.9 Daily headaches. Will treat with Topamax which will hopefully also help her sleeping problem. Health Concerns Section Related Observation LastModified by Organization Detai ls LastModified Time None Recorded Concern Status LastModified by Organization Details LastModified Time None Recorded Advance Directives Directive None Recorded Payers Encounter Date Sequence Insurance Name Policy Number Policy Richey Covered Member ID Richey Member ID Guarantor Name 06/10/2024 1 [facility] ON OR AFTER 08/11/20 (MEDICAID REPLACEMENT - HMO) Ana M Mayers [id number] Ana M Mayers Notes Date Note Type Note Provider Name and Address Organization Details Recorded Time 06/10/2024 text/html here to [facility], started around [age] years old with possible anxiety, notices heart racing, feels like has to get up and move, feels nervous, go out with friends and can't walk into bar because of crowds, doesn't like to be around a lot of people, shaking and feels like will pass out, has noticed this since she has been a single mom, over thinks, sleeps pretty good, self medicates with marijuana to fall asleep, does not eat, uses marijuana to help eat because other roberts won't eat, has been feeling worse over the last three weeks and that is the time she has been out of a job, does not feel like won't have money because she has a fiancee who is working and helps with financial support, sometimes doesn't want to get out of bed, hard to motivate, brother has similar issues, was on levothyroxine before first daughter, was on iron pills in the past, may have endometriosis, had gallbladder out in eighth grade, no thoughts of hurting herself Kathy Vaz MD Attn: Accounting,[address], [place], [address], [facility] 06/10/2024 18:27:48 OBGyn Episode No OBEpisode recorded.
[2024-06-25 11:48] VITALS: BP 130/88; PULSE 72; RESP 18; TEMP 36.8; O2SAT 96
[2024-06-25 12:13] LABS: BEDSIDEPREGUCG Negative (Negative)
[2024-06-25 12:30] LABS: Basophils Percent Auto 0.2 % (0.2-1.2); Eosinophils Absolute Auto 0.1 K/mm3 (0-0.3); Eosinophils Percent Auto 0.5 % (0-4.4); Hematocrit 33.8 % (37.0-47.0); Hemoglobin 10.9 g/dL (12.0-15.0); Immature Granulocyte Absolute 0.03 K/mm3 (0.00-0.031); Immature Granulocyte Percent A 0.3 % (0-0.5); Lymphocytes Absolute Auto 2.93 K/mm3 (0.9-3.2); Lymphocytes Percent Auto 29.5 % (18.3-44.2); Mean Corpuscular HGB Conc 32.2 g/dl (32-36); Mean Corpuscular Hemoglobin 29.3 pg (26-34); Mean Corpuscular Volume 90.9 fl (80-100); Mean Platelet Volume 10.7 fl (7.4-10.4); Monocytes Absolute Auto 0.5 K/mm3 (0.1-0.6); Neutrophils Absolute Auto 6.4 K/mm3 (1.3-6.7); Neutrophils Percent Auto 64.5 % (45.5-73.1); Platelet Count Result 294 k/mm3 (150-375); Red Blood Count 3.72 M/mm3 (4.2-5.4); Red Cell Distribution Width 14.5 % (11.5-14.5); White Blood Count 9.9 K/mm3 (4.5-10.0)
[2024-06-25 12:34] LABS: Alanine Aminotransferase 27 U/L (6-35); Albumin Level 4.3 g/dL (3.5-5.1); Alkaline Phosphatase 58 U/L (38-126); Anion Gap 11 mmol/L (4-12); Aspartate Amino Transferase 35 U/L (14-36); Bilirubin,Total 0.6 mg/dL (0.2-1.3); Blood Urea Nitrogen 8 mg/dL (7-17); Calcium 8.8 mg/dL (8.4-10.2); Carbon Dioxide 19 mmol/L (22-30); Chloride 110 mmol/L (98-107); Estimated CRCL calculation 114 ml/min; Estimated Glomerular Filt Rate > 60; Glucose 98 mg/dL (65-110); Lipase 72 U/L (23-300); Sodium 140 mmol/L (137-145)
[2024-06-25 12:39] LABS: Appearance Urine Cloudy (Clear)
--- OUTSIDE RECORDS SUMMARY | 2024-06-25 12:40 | XMS_ITS | Clinical Summary ---
Author Organization [facility] Address [address] [facility] [place] [address] Care Team Providers Care Show Host/Hostess Name Role Phone Daniel Leal MD Primary Care Provider Source Comments [facility],non-owned Affiliates and Associated Physician Practices is amultiple site organization consisting of ambulatory clinics and hospital sitesin [place], [place], [place] and [place]. This disclosure is being madepursuant to the Care Everywhere program and may not contain all information available regarding this patient. Last updated 17.[facility] Immunizations Immunization Administration Dates Next Due TDAP (7yrs+) 10/06/2015 Social History Tobacco Use Types Packs/Day Years Used Date Smoking Tobacco: Never Assessed Comments Unknown Sex and Gender Information Value Date Recorded Sex Assigned at Not on file Legal Sex Female 5:44 AM [employer] SALES [employer] Gender Identity Not on file Sexual Orientation [...] to complete this topic Insurance Care Teams Show Host/Hostess Relationship Specialty Start Date End Date Daniel Leal MD [address] [facility] [address] [place] [address] PCP - General Internal Medicine 10/06/15
--- OUTSIDE RECORDS SUMMARY | 2024-06-25 12:40 | XMS_ITS | Clinical Summary ---
Author Organization [facility] Address [address] [place] [address] Phone Care Team Providers Care Teasel Gig Operator Name Role Phone Provider, None Primary [...] on file Insurance [place]ICAID [place] Care Teams Teasel Gig Operator Relationship Specialty Start Date End Date Provider, None [place] PCP - General 10/18/16
[2024-06-25 12:51] LABS: Bilirubin Urine 2+ (Negative); Blood Urine 3+ (Negative); Glucose Urine UA Negative (Negative); Ketones Urine Negative (Negative); Nitrate Urine Negative (Negative); Protein Urine 2+ mg/dL (Negative)
[2024-06-25 12:52] LABS: Add Urine Microscopic? YES; Leukocyte Esterase Ur Trace LEU/UL (Negative); RBC Urine >100 /hpf (0-2); Urobilinogen Urine 0.2 mg/dL (<2.0); WBC Urine 0-5 /hpf (0-3)
[2024-06-25 12:53] LABS: Bacteria Urine Trace /hpf; Squamous Epithelial Cell Urine Few /hpf (Few)
[2024-06-25 12:54] LABS: Color Urine Red (Yellow)
--- NOTE | 2024-06-25 13:48 | ED_ITS ---
HPI - General Adult General Chief complaint: DIAMOND EXPERT Stated complaint: Lower abd pain/cramping Time Seen by Provider: 06/25/24 12:09 History of Present Illness HPI narrative: Patient is a 33-year-old female who presents to the ER with cramping lower abdominal pain. Ongoing over last 2 days. She was supposed to start her menstrual cycle 4 days ago only had some light pink spotting. She did start her flow today. No large clots. Has history of ovarian cysts in the past. No urinary frequency urgency or dysuria. Denies fevers or chills or sweats. No alleviating factors for her cramping. Related Data Allergies Allergy/AdvReac Type Severity Reaction Status Date / Time No Known Allergies Allergy Verified 06/25/24 11:42 Review of Systems 2 Review of Systems: All systems reviewed & are unremarkable except as noted in HPI and below Constitutional: Constitutional: Reports no additional constitutional complaints Cardiovascular: Cardiovascular: Reports no additional cardiovascular complaints Respiratory: Respiratory: Reports no additional respiratory complaints Gastrointestinal: Gastrointestinal: Reports no additional gastrointestinal complaints Genitourinary: Genitourinary: Reports no additional female genitourinary complaints [facility] Past Medical History Medical History Anxiety Surgical History Surgical History History of cholecystectomy Social History Social History Smoking packs per day: 1 Smoking cigarettes per day: 20.0 Years smoked: 5 Smoking pack-years: 5.00 Smoking status: Current every day smoker Tobacco type: e-cigarettes/vaping Second hand tobacco smoke exposure: No Additional smoking assessment comments: CURRENTLY VAPES DAILY FOR 2-3 YEARS Alcohol intake: never Substance use: current Substance use type: marijuana Other substance usage details: daily Living arrangements: with family Additional living arrangements comments: with fiance and children Spiritual care concerns: No Exam 2 Narrative: GENERAL: Well-appearing, well-nourished, and in no acute distress. HEAD: Normocephalic, atraumatic. ENT: Mucous membranes moist. CHEST: Clear to auscultation. No respiratory distress. HEART: Regular rate and rhythm. Normal peripheral pulses. ABDOMEN: Soft, nontender, nondistended. EXTREMITIES: Normal range of motion. No edema. SKIN: Warm, dry, no rash. NEURO: Alert and oriented x3. PSYCH: Normal mood and affect. Course Course Emergency Course: Patient resting comfortably. Informed of results. Discharge home. Recommend scheduled Tylenol and ibuprofen. No evidence of torsion. Vital Signs Vital signs: Vital Signs Temperature 98.2 F 06/25/24 11:48 Pulse Rate 72 06/25/24 11:48 Respiratory Rate 18 06/25/24 11:48 Blood Pressure 130/88 06/25/24 11:48 Pulse Oximetry 96 06/25/24 11:48 Oxygen Delivery Room Air 06/25/24 11:48 Temperature 98.2 F 06/25/24 11:48 Pulse Rate 68 06/25/24 14:24 Respiratory Rate 18 06/25/24 14:24 Blood Pressure 127/89 06/25/24 14:24 Pulse Oximetry 100 06/25/24 14:24 Oxygen Delivery Room Air 06/25/24 11:48 Medical Decision Making Vital Signs Vital Signs: Vital Signs Temperature 98.2 F 06/25/24 11:48 Pulse Rate 72 06/25/24 11:48 Respiratory Rate 18 06/25/24 11:48 Blood Pressure 130/88 06/25/24 11:48 Pulse Oximetry 96 06/25/24 11:48 Oxygen Delivery Room Air 06/25/24 11:48 Temperature 98.2 F 06/25/24 11:48 Pulse Rate 68 06/25/24 14:24 Respiratory Rate 18 06/25/24 14:24 Blood Pressure 127/89 06/25/24 14:24 Pulse Oximetry 100 06/25/24 14:24 Oxygen Delivery Room Air 06/25/24 11:48 Lab Data 06/25/24 12:12 06/25/24 12:12 Labs: Lab Results 06/25/24 06/25/24 Range/Units 12:11 12:12 WBC 9.9 (4.5-10.0) K/mm3 RBC 3.72 L (4.2-5.4) M/mm3 Hgb 10.9 L (12.0-15.0) g/dL Hct 33.8 L (37.0-47.0) % MCV 90.9 (80-100) fl MCH 29.3 (26-34) pg MCHC 32.2 (32-36) g/dl RDW 14.5 (11.5-14.5) % Plt Count 294 (150-375) k/mm3 MPV 10.7 H (7.4-10.4) fl Immature Gran % (Auto) 0.3 (0-0.5) % Neut % (Auto) 64.5 (45.5-73.1) % Lymph % (Auto) 29.5 (18.3-44.2) % Brooke % (Auto) 5.0 (2.6-8.5) % Eos % (Auto) 0.5 (0-4.4) % Baso % (Auto) 0.2 (0.2-1.2) % Lymph # (Auto) 2.93 (0.9-3.2) K/mm3 Brooke # (Auto) 0.5 (0.1-0.6) K/mm3 Eos # (Auto) 0.1 (0-0.3) K/mm3 Baso # (Auto) 0.0 (0.0-0.1) K/mm3 Abs Immat Gran (auto) 0.03 (0.00-0.031) K/mm3 Absolute Neuts (auto) 6.4 (1.3-6.7) K/mm3 Absolute Nucleated RBC 0.000 (0.0-0.012) K/mm3 Nucleated RBC % 0.0 (0.0-0.2) % Sodium 140 (137-145) mmol/L Potassium 4.0 (3.4-5.0) mmol/L Chloride 110 H (98-107) mmol/L Carbon Dioxide 19 L (22-30) mmol/L Anion Gap 11 (4-12) mmol/L BUN 8 D (7-17) mg/dL Creatinine 0.80 (0.7-1.0) mg/dL Estim Creat Clear Calc 114 ml/min Estimated GFR > 60 (59 - ) Glucose 98 (65-110) mg/dL Calcium 8.8 (8.4-10.2) mg/dL Total Bilirubin 0.6 (0.2-1.3) mg/dL AST 35 (14-36) U/L ALT 27 (6-35) U/L Alkaline Phosphatase 58 (38-126) U/L Total Protein 8.0 (6.3-8.2) g/dL Albumin 4.3 (3.5-5.1) g/dL Lipase 72 (23-300) U/L Urine Color Red H (Yellow) Urine Appearance Cloudy H (Clear) Urine pH 6.0 (5.0-9.0) Ur Specific Huxley 1.030 (1.001-1.035) Urine Protein 2+ H (Negative) mg/dL Urine Glucose (UA) Negative (Negative) mg/dL Urine Ketones Negative (Negative) mg/dL Ur Blood (Man) 3+ H (Negative) Urine Nitrate Negative (Negative) Urine Bilirubin 2+ H (Negative) Urine Urobilinogen 0.2 (<2.0) mg/dL Leukocyte Esterase Rfl Trace H (Negative) VARINDER/UL Urine RBC >100 H (0-2) /hpf Urine WBC 0-5 (0-3) /hpf Ur Squamous Epith Cells Few (Few) /hpf Urine Bacteria Trace (None) /hpf POC Urine HCG, Qual Negative (Negative) Imaging Data Radiologist's impression: ITS Impressions Pelvic/Transvag US 06/25/24 13:54 IMPRESSION: 1. Indeterminate 4 mm echogenic region within the left ovary which could represent sequela of recent left ovarian cyst removal. Otherwise unremarkable pelvic ultrasound with small bilateral ovarian follicles and a few small nabothian cysts at the cervix. Discharge Plan Discharge Clinical Impression: Dysmenorrhea Patient Disposition: Home Condition: Stable Instructions: Dysmenorrhea (ED) Additional Instructions: Return to the emergency department if you develop severe abdominal pain, severe nausea and vomiting to the point where you are unable to keep down fluids, if you develop chest pain or difficulty breathing, blood in your stool, dizziness or fainting, or if you develop any other new or concerning symptoms as these could be signs of more serious medical illness. Try to stay well hydrated. Patient Language: Honduran Prescriptions: No Action hydrocodone-acetaminophen 5-325 mg tablet 1 tablet PO Q4H PRN (Reason: pain) Qty: 20 0RF Follow-up/Referrals: Milind,Kathy George MD [Primary Care Provider] - 1 Week
[2024-06-25] MEDS: KETOROLAC 30 MG/ML VIAL (*BKC) IV PUSH (14:17)
[2024-06-25 14:24] VITALS: BP 127/89; PULSE 68; RESP 18; O2SAT 100
== END 2024-06-25 14:50 | disposition home or self-care (01) ==
PROVIDERS: Emergency Medicine; Emergency Provider Emergency Medicine; PCP Emergency Medicine
DX: N94.6 Dysmenorrhea, unspecified (principal); F41.9 Anxiety disorder, unspecified; F17.290 Nicotine dependence, other tobacco product, uncomplicated
CPT/HCPCS: 36415; 76830; 76856; 80053; 81001; 81025; 83690; 85025; 96374; 99284; J1885